=== PATIENT | male | born 1950 | race Caucasian/White ===

== ENCOUNTER → 2016-11-10 | Outpatient (CLI) | payer MEDICARE, OTHER ==
[~2016-11-10] MED LIST: ASCO100072 PO; CETI10TA24 PO; FLUT10SP NAS; HYDR12.58 PO; LISI40TA PO; LOSA50TA6 PO; MULT-257 PO; OMEP40CA3 PO; ONDA4TAB7 PO; OXYC5CAP2 PO; TAMS0.4C2 PO; WHEA1POW5 PO
[2016-11-10 09:16] LABS: ASPARTATE AMINO TRANSFERASE 20 U/L (15-37); BLOOD UREA NITROGEN 21 mg/dL (7-18)
== END | disposition home or self-care (01) ==
LOC: STAR 08:12
PROVIDERS: ATTEND Internal Medicine Gastroenterology
DX: Z01.818 Encounter for other preprocedural examination (principal); K63.5 Polyp of colon
CPT/HCPCS: 36415; 80053; 93005

== ENCOUNTER 2016-11-24 09:00 | Day surgery (SDC) | payer MEDICARE, OTHER ==
[2016-11-10 08:39] VITALS: BP 163/100
[~2016-11-24] VITALS: Ht 185.4 cm; Wt 95.9 kg
[2016-11-24] MEDS ORDERED: LACTATED RINGERS 1,000 ML IV SCH (09:28)
[2016-11-24 09:29] VITALS: BP 163/100
[2016-11-24] MEDS ORDERED: INDOCYANINE GREEN 25 MG VIAL ONE (11:28)
[2016-11-24] MEDS ORDERED: EPINEPHRINE SYRINGE 0.1 MG/ML, 10ML ONE (11:29)
[2016-11-24] MEDS ORDERED: PROPOFOL 10 MG/ML, 20ML ONE ×2 (11:36)
[2016-11-24] MEDS ORDERED: MIDAZOLAM 1 MG/ML, 2ML ONE (11:39)
[2016-11-24] MEDS ORDERED: FENTANYL PF 100 MCG/2ML ONE (11:39)
[2016-11-24] MEDS ORDERED: OXYcodone 5 MG/5 ML ORAL.SOL UDC PO PRN (12:00)
[2016-11-24] MEDS ORDERED: hydrALAzine 20 MG/ML, 1ML IV PRN (12:00)
[2016-11-24] MEDS ORDERED: ACETAMINOPHEN 325 MG TABLET PO PRN (12:00)
[2016-11-24] MEDS ORDERED: ONDANSETRON 2MG/ML, 2ML IVPush PRN (12:00)
[2016-11-24] MEDS ORDERED: PROMETHAZINE 25 MG/ML, 1ML IV PRN (12:00)
[2016-11-24] MEDS ORDERED: EPHEDRINE 50 MG/ML, 1ML IVPush PRN (12:00)
[2016-11-24] MEDS ORDERED: METOCLOPRAMIDE 5 MG/ML, 2ML IV PRN (12:00)
[2016-11-24] MEDS ORDERED: ALBUTEROL SULFATE 2.5 MG/3 ML NPPB PRN (12:00)
[2016-11-24] MEDS ORDERED: METOPROLOL 1 MG/ML, 5ML IV PRN (12:00)
[2016-11-24] MEDS ORDERED: MEPERIDINE/PF 25MG/0.5ML IVPush PRN (12:00)
[2016-11-24] MEDS ORDERED: HYDROmorphone 1 MG/ML, 1ML IV PRN (12:00)
[2016-11-24] MEDS ORDERED: FENTANYL PF 100 MCG/2ML IV PRN (12:00)
[2016-11-24] MEDS ORDERED: LABETALOL 5MG/ML, 20ML IV PRN (12:00)
== END 2016-11-24 13:30 | disposition home or self-care (01) ==
LOC: OUT 09:00
PROVIDERS: ATTEND Internal Medicine Gastroenterology
DX: Z09 Encounter for follow-up examination after completed treatment for conditions other than malignant neoplasm (principal); K63.5 Polyp of colon; K62.1 Rectal polyp; I10 Essential (primary) hypertension; Z86.010 Personal history of colon polyps; Z87.891 Personal history of nicotine dependence; Z98.890 Other specified postprocedural states; Z88.1 Allergy status to other antibiotic agents; Z91.040 Latex allergy status; Z98.0 Intestinal bypass and anastomosis status
CPT/HCPCS: 45380; 88305; J2250; J2704; J3010; J7120

== ENCOUNTER → 2018-01-24 | Outpatient (CLI) | payer MEDICARE, OTHER ==
[~2018-01-24] MED LIST changes: -LOSA50TA6 PO; +LOSA50TA7 PO; +OMNIPAQUE 350 MG/ML, 100ML BOTTLE ONE
== END | disposition home or self-care (01) ==
LOC: CFH 08:58
PROVIDERS: ATTEND Internal Medicine
DX: N28.1 Cyst of kidney, acquired (principal); C7A.8 Other malignant neuroendocrine tumors
CPT/HCPCS: 71260; 74177; Q9967

== ENCOUNTER 2019-01-14 10:44 | Outpatient (CLI) | payer MEDICARE, OTHER ==
[~2019-01-14 10:44] MED LIST changes: -HYDR12.58 PO; +HYDROCHLOROTH12.5 MG PO; +LOSA50TA14 PO; -LOSA50TA7 PO; -OMNIPAQUE 350 MG/ML, 100ML BOTTLE ONE
[2019-01-14] MEDS ORDERED: OMNIPAQUE 350 MG/ML, 100ML BOTTLE ONE (14:47)
== END 2019-01-14 23:59 | disposition home or self-care (01) ==
LOC: CFH 10:44
PROVIDERS: ATTEND Internal Medicine
DX: C7A.8 Other malignant neuroendocrine tumors (principal); N63.10 Unspecified lump in the right breast, unspecified quadrant; Z91.040 Latex allergy status; Z88.5 Allergy status to narcotic agent; Z91.048 Other nonmedicinal substance allergy status; Z91.018 Allergy to other foods; Z85.89 Personal history of malignant neoplasm of other organs and systems; Z87.891 Personal history of nicotine dependence; N28.1 Cyst of kidney, acquired; K57.30 Diverticulosis of large intestine without perforation or abscess without bleeding; M47.816 Spondylosis without myelopathy or radiculopathy, lumbar region
CPT/HCPCS: 71260; 74177; Q9967